=== PATIENT | male | born 1960 | race American Indian/Alaskan Native ===

== ENCOUNTER 2017-10-16 09:30 | Emergency (ER) | payer SELFPAY ==
[2017-10-16 09:55] VITALS: BP 147/81
[2017-10-16] MEDS ORDERED: ASPIRIN PO ONE (09:55)
[2017-10-16 11:11] LABS: Basophils % (Auto) 0.7 % (0.0-1.8); Eosinophils # (Auto) 0.2 K/mm3 (0.0-0.4); Eosinophils % (Auto) 3.4 % (0.0-4.3); Hematocrit 42.8 % (35.5-45.6); Hemoglobin 14.3 gm/dl (11.8-15.2); Lymphocytes % (Auto) 36.2 % (13.4-35.0); Mean Corpuscular HGB Conc 33 % (32-34); Mean Corpuscular Hemoglobin 32 pg (28-32); Mean Corpuscular Volume 95 fl (84-94); Monocytes # (Auto) 0.7 K/mm3 (0.0-0.8); Monocytes % (Auto) 12.7 % (0.0-7.3); Platelet Count 262 K/mm3 (140-440); Red Blood Count 4.53 M/mm3 (3.65-5.03); Red Cell Distribution Width 13.3 % (13.2-15.2)
[2017-10-16 11:28] LABS: BUN/Creatinine Ratio 11; Blood Urea Nitrogen 10 mg/dL (9-20); Calcium 8.9 mg/dL (8.4-10.2); Hemolysis Index 15
--- NOTE | 2017-10-16 13:58 | Emergency Department Report ---
ED General Adult HPI - General Chief complaint: Chest Pain Stated complaint: LEFT FOOT PAIN/COUGH Time Seen by Provider: 10/16/17 13:53 Source: patient Mode of arrival: Ambulatory Limitations: No Limitations - History of Present Illness Initial comments: Mr. Mancera presents with several concerns. He has had daily headache for approximately a month on the right side. He has pain behind the right eye and right forehead without any vision loss. He states that he requires ibuprofen daily. Ibuprofen does provide relief of the pain. He denies neck pain. Denies vomiting. Pain is moderately severe. Secondly patient is concerned about palpitations. He had palpitations for several weeks. He has a known history of bradycardia. He denies any chest pain. He denies shortness of breath. The patient has had a productive cough with greenish sputum. He does smoke tobacco when he is stressed. Patient is concerned about chronic left foot pain after remote injury. He states the pain is worse with cold weather. - Related Data Previous Rx's Medication Instructions Recorded Last Taken Type HYDROcodone/APAP 5-325 [[place] 1 each PO Q6HR PRN #16 tablet 06/28/16 Unknown Rx 5/325] Acetaminophen [Acetaminophen TAB] 1,000 mg PO Q6HR #20 tablet 07/16/16 Unknown Rx Amoxicillin [Amoxicillin TAB] 875 mg PO BID #20 tablet 07/16/16 Unknown Rx Cetirizine HCl [ZyrTEC] 10 mg PO DAILY #25 capsule 07/16/16 Unknown Rx Allergies Allergy/AdvReac Type Severity Reaction Status Date / Time No Known Allergies Allergy Verified 06/27/16 11:44 ED Review of Systems ROS: Stated complaint: LEFT FOOT PAIN/COUGH Other details as noted in HPI Comment: All other systems reviewed and negative Constitutional: denies: chills, fever Eyes: denies: eye pain, eye discharge, vision change ENT: denies: ear pain, throat pain Respiratory: cough. denies: shortness of breath, wheezing Cardiovascular: palpitations. denies: chest pain Endocrine: no symptoms reported Gastrointestinal: denies: abdominal pain, nausea, diarrhea Musculoskeletal: denies: back pain, joint swelling, arthralgia Skin: denies: rash, lesions Neurological: headache. denies: weakness, paresthesias Psychiatric: denies: anxiety, depression ED Past Medical Hx - Past Medical History Previous Medical History?: No - Surgical History Past Surgical History?: No - Social History Smoking Status: Current Every Day Smoker Substance Use Type: None - Medications Home Medications: Home Medications Medication Instructions Recorded Confirmed Last Taken Type HYDROcodone/APAP 5-325 [[place] 1 each PO Q6HR PRN #16 tablet 06/28/16 Unknown Rx 5/325] Acetaminophen [Acetaminophen TAB] 1,000 mg PO Q6HR #20 tablet 07/16/16 Unknown Rx Amoxicillin [Amoxicillin TAB] 875 mg PO BID #20 tablet 07/16/16 Unknown Rx Cetirizine HCl [ZyrTEC] 10 mg PO DAILY #25 capsule 07/16/16 Unknown Rx ED Physical Exam - General Limitations: No Limitations General appearance: alert, in no apparent distress - Head Head exam: Present: atraumatic, normocephalic - Eye Eye exam: Present: normal appearance, PERRL - ENT ENT exam: Present: normal orophraynx, mucous membranes moist - Neck Neck exam: Present: normal inspection. Absent: tenderness, meningismus - Respiratory Respiratory exam: Present: normal lung sounds bilaterally. Absent: respiratory distress, wheezes, rales, rhonchi - Cardiovascular Cardiovascular Exam: Present: regular rate, normal rhythm. Absent: bradycardia , tachycardia, normal heart sounds, systolic murmur, diastolic murmur, rubs, gallop - GI/Abdominal GI/Abdominal exam: Present: soft, normal bowel sounds. Absent: distended, tenderness, guarding, rebound - Rectal Rectal exam: Present: deferred - Extremities Exam Extremities exam: Present: normal inspection - Back Exam Back exam: Present: normal inspection - Neurological Exam Neurological exam: Present: alert, oriented X3, normal gait. Absent: motor sensory deficit - Psychiatric Psychiatric exam: Present: normal affect, normal mood - Skin Skin exam: Present: warm, dry, intact, normal color. Absent: rash ED Course Vital Signs 10/16/17 09:49 Temperature 98.1 F Pulse Rate 55 L Blood Pressure 147/81 O2 Sat by Pulse 95 Oximetry ED Medical Decision Making - Lab Data Result diagrams: 10/16/17 10:53 10/16/17 10:53 Laboratory Results - last 24 hr 10/16/17 10/16/17 10/16/17 10:53 10:53 12:55 WBC 5.5 RBC 4.53 Hgb 14.3 Hct 42.8 MCV 95 H MCH 32 MCHC 33 RDW 13.3 Plt Count 262 Lymph % (Auto) 36.2 H [place] % (Auto) 12.7 H Eos % (Auto) 3.4 Baso % (Auto) 0.7 Lymph # 2.0 [place] # 0.7 Eos # 0.2 Baso # 0.0 Seg Neutrophils % 47.0 Seg Neutrophils # 2.6 Sodium 140 Potassium 4.2 Chloride 103.6 Carbon Dioxide 25 Anion Gap 16 BUN 10 Creatinine 0.9 Estimated GFR > 60 BUN/Creatinine Ratio 11 Glucose 83 Calcium 8.9 Troponin T < 0.010 < 0.010 Vital Signs - 24 hr 10/16/17 09:49 Temperature 98.1 F Pulse Rate 55 L Blood Pressure 147/81 O2 Sat by Pulse 95 Oximetry - EKG Data 10/16/17 13:58 EKG obtained 0958 Sinus bradycardia rate of 50 normal axis, normal intervals no ST-T signs of ischemia - Medical Decision Making 1. Headache for greater than 3 weeks, suspect tension headache, acute sinusitis is consideration however patient does not have nasal congestion or facial tenderness, patient given reassurance. 2. Intermittent Palpitations, patient has no history of bradycardia. No evidence of ACS or PE clinically. 3. Productive cough attributed to tobacco use, smoking cessation recommended 4. Chronic foot pain, patient given reassurance and education. Critical care attestation.: If time is entered above; I have spent that time in minutes in the direct care of this critically ill patient, excluding procedure time. ED Disposition Clinical Impression: Tension headache, Palpitations Disposition: -01 TO HOME OR SELFCARE Is pt being admited?: No Does the pt Need Aspirin: No Condition: Stable Instructions: Tension Headache (ED), Palpitations (ED) Referrals: [facility] [Outside] - 3-5 Days Time of Disposition: 14:01
[2017-10-16] MEDS ORDERED: NORCO 5/325 PO ONE (14:08)
== END 2017-10-16 14:14 | disposition home or self-care (01) ==
LOC: ED 09:30
DX: G44.209 Tension-type headache, unspecified, not intractable (principal); R00.2 Palpitations; M79.672 Pain in left foot; G89.29 Other chronic pain; R05 Cough; F17.200 Nicotine dependence, unspecified, uncomplicated
CPT/HCPCS: 36415; 80048; 84484; 85025; 93005; 93010